=== PATIENT | male | born 1955 | race American Indian/Alaskan Native ===

== ENCOUNTER 2018-01-11 15:17 | Emergency (ER) | payer SELFPAY ==
[2018-01-11 15:24] VITALS: BP 172/87
[2018-01-11] MEDS ORDERED: MOTRIN PO ONE (18:03)
--- NOTE | 2018-01-11 18:08 | Emergency Department Report ---
- General Chief complaint: Skin/Abscess/Foreign Body Stated complaint: ABSCESS ON BACK Time Seen by Provider: 01/11/18 18:03 Source: patient Mode of arrival: Ambulatory Limitations: No Limitations - History of Present Illness Initial comments: 62-year-old -[place] male comes in complaining of a boil in the middle upper back for a month. Patient reports that the boil comes and goes. He reports she is seeking care in the shower with hot water allows simple 2 burst. Patient reports that he has 2 out of 10 pain. Patient denies any fever chills no nausea vomiting. Patient reports no past medical history currently takes no medication has no known drug allergies. Patient reports does not have a primary care provider. MD complaint: abscess/boil -: month(s) Location: back Severity scale (0 -10): 2 Quality: aching Consistency: constant - Related Data Previous Rx's Medication Instructions Recorded Last Taken Type Ibuprofen [Motrin 800 MG tab] 800 mg PO Q8HR PRN #30 tablet 01/11/18 Unknown Rx Sulfamethoxazole/Trimethoprim 1 each PO BID #20 tablet 01/11/18 Unknown Rx [Bactrim DS TAB] Allergies Allergy/AdvReac Type Severity Reaction Status Date / Time No Known Allergies Allergy Unverified 01/11/18 15:21 Abscess Boil HPI - HPI Chief Complaint: Skin/Abscess/Foreign Body Stated Complaint: ABSCESS ON BACK Time Seen by Provider: 01/11/18 18:03 Home Medications: Previous Rx's Medication Instructions Recorded Last Taken Type Ibuprofen [Motrin 800 MG tab] 800 mg PO Q8HR PRN #30 tablet 01/11/18 Unknown Rx Sulfamethoxazole/Trimethoprim 1 each PO BID #20 tablet 01/11/18 Unknown Rx [Bactrim DS TAB] Allergies/Adverse Reactions: Allergies Allergy/AdvReac Type Severity Reaction Status Date / Time No Known Allergies Allergy Unverified 01/11/18 15:21 ED Review of Systems ROS: Stated complaint: ABSCESS ON BACK Other details as noted in HPI Constitutional: denies: chills, fever Eyes: denies: eye pain, eye discharge, vision change ENT: denies: ear pain, throat pain Cardiovascular: denies: chest pain, palpitations Endocrine: no symptoms reported Gastrointestinal: denies: abdominal pain, nausea, diarrhea Genitourinary: denies: urgency, dysuria Musculoskeletal: denies: back pain, joint swelling, arthralgia Skin: lesions. denies: rash Neurological: denies: headache, weakness, paresthesias Psychiatric: denies: anxiety, depression Hematological/Lymphatic: denies: easy bleeding, easy bruising ED Past Medical Hx - Past Medical History Previous Medical History?: No - Surgical History Past Surgical History?: No - Social History Smoking Status: Current Every Day Smoker Substance Use Type: Alcohol, Marijuana - Medications Home Medications: Home Medications Medication Instructions Recorded Confirmed Last Taken Type Ibuprofen [Motrin 800 MG tab] 800 mg PO Q8HR PRN #30 tablet 01/11/18 Unknown Rx Sulfamethoxazole/Trimethoprim 1 each PO BID #20 tablet 01/11/18 Unknown Rx [Bactrim DS TAB] ED Physical Exam - General Limitations: No Limitations General appearance: alert, in no apparent distress - Head Head exam: Present: atraumatic, normocephalic - Eye Eye exam: Present: normal appearance - ENT ENT exam: Present: mucous membranes moist - Neck Neck exam: Present: normal inspection - Respiratory Respiratory exam: Present: normal lung sounds bilaterally. Absent: respiratory distress - Cardiovascular Cardiovascular Exam: Present: regular rate, normal rhythm. Absent: systolic murmur, diastolic murmur, rubs, gallop - GI/Abdominal GI/Abdominal exam: Present: soft, normal bowel sounds - Extremities Exam Extremities exam: Present: normal inspection - Back Exam Back exam: Present: normal inspection - Neurological Exam Neurological exam: Present: alert, oriented X3 - Psychiatric Psychiatric exam: Present: normal affect, normal mood - Skin Skin exam: Present: other (erythematous edematous indurated abscess with minimal discharge from express. ) ED Course Vital Signs 01/11/18 15:21 Temperature 98.3 F Pulse Rate 102 H Respiratory 22 Rate Blood Pressure 172/87 O2 Sat by Pulse 97 Oximetry ED Medical Decision Making - Medical Decision Making Patient's been evaluated by this provider fast track. I discussed with patient that the abscess on his back is not ready to be incision and drained I was able to express some purulent white foul odor or discharge from culture was obtained. Discussed the patient I'll place him antibiotics such as Bactrim double strength 1 by mouth twice a day for 10 days. Discussed the patient to continue warm hot compresses hot showers washed with bowel soap or chlorhexidine body wash. Follow up with her primary care provider if symptoms persist or gets worse. Patient verbalized understanding Critical care attestation.: If time is entered above; I have spent that time in minutes in the direct care of this critically ill patient, excluding procedure time. ED Disposition Clinical Impression: Abscess of skin Qualifiers: Site of cutaneous abscess: other site Qualified Code(s): L02.818 - Cutaneous abscess of other sites Disposition: TO HOME OR SELFCARE Is pt being admited?: No Does the pt Need Aspirin: No Condition: Stable Instructions: Abscess (ED) Additional Instructions: Please take pain medication as prescribed complete antibiotic as prescribed please place warm compresses to abscess. Please wash with chlorhexidine or Dial soap. Follow-up in the emergency room is symptoms persist or gets worse. Prescriptions: Ibuprofen [Motrin 800 MG tab] 800 mg PO Q8HR PRN #30 tablet PRN Reason: abscess Sulfamethoxazole/Trimethoprim [Bactrim DS TAB] 1 each PO BID #20 tablet Referrals: PRIMARY CARE, [Primary Care Provider] - 3-5 Days Forms: Work/School Release Form(ED)
== END 2018-01-11 18:27 | disposition home or self-care (01) ==
LOC: ED 15:17
DX: L02.212 Cutaneous abscess of back [any part, except buttock and flank] (principal); F17.200 Nicotine dependence, unspecified, uncomplicated; F12.10 Cannabis abuse, uncomplicated
CPT/HCPCS: 99282